=== PATIENT | male | born 1960 | race African-American/Black ===

== ENCOUNTER 2024-01-31 18:51 | Emergency (ER) | payer SELFPAY ==
--- NOTE | 2024-01-31 | ECG_ITS ---
Measurements Intervals [place] Rate: 85 P: 67 MO: 158 QRS: -25 QRSD: 113 T: 228 QT: 371 QTc: 442 Interpretive Statements SINUS RHYTHM INTRAVENTRICULAR CONDUCTION DELAY BORDERLINE R WAVE PROGRESSION, ANTERIOR LEADS LEFT VENTRICULAR HYPERTROPHY AND ST-T CHANGE ST-T WAVE ABNORMALITY IN INF/HIGH LAT LEADS- CONSIDER ISCHEMIA ABNORMAL ECG NO PREVIOUS ECG AVAILABLE FOR COMPARISON Electronically Signed On 02-01-2024 6:23:58 CDT by Jay Valiente D.O.
--- NOTE | ~2024-01-31 | CT_ITS ---
EXAMINATION: CT abdomen pelvis wo con DATE: 01/31/2024 20:23 INDICATION: Abdominal pain TECHNIQUE: Computed tomography (CT) of the abdomen and pelvis was performed without intravenous contr ast. The dose-length product (DLP) was 1482.38 mGy-cm. Automated exposure control and iterative recon struction technique were employed. COMPARISON: None FINDINGS: The lung bases are clear. The heart size is normal. There is mild nodularity of the liver s urface. The spleen, gallbladder, and adrenal glands are normal. Punctate calcifications of the pancre as likely reflect chronic pancreatitis. The kidneys are unremarkable. No pathologically enlarged abdo sangeeta or pelvic lymph nodes are identified. No free intraperitoneal gas or evidence of bowel obstruct ion. The appendix is normal. There is an umbilical hernia containing fat. There is severe lower lumba r spondylosis. IMPRESSION: 1. No CT correlate for the patient's symptoms. 2. Cirrhosis of the liver. Reviewed, dictated and finalized at location F.
[2024-01-31 18:45] VITALS: BP 128/79; PULSE 88; RESP 14; TEMP 36.3; O2SAT 100
[2024-01-31 19:13] VITALS: BP 117/77; PULSE 83; RESP 12; O2SAT 100
[2024-01-31 19:15] LABS: Basophils Absolute Auto 0.1 K/mm3 (0.0-0.1); Basophils Percent Auto 0.6 % (0.2-1.2); Eosinophils Absolute Auto 0.1 K/mm3 (0-0.3); Eosinophils Percent Auto 0.6 % (0-4.4); Hematocrit 42.6 % (42.0-52.0); Hemoglobin 13.6 g/dL (14.0-18.0); Immature Granulocyte Absolute 0.05 K/mm3 (0.00-0.031); Immature Granulocyte Percent A 0.6 % (0-0.5); Lymphocytes Absolute Auto 2.69 K/mm3 (0.9-3.2); Lymphocytes Percent Auto 30.2 % (18.3-44.2); Mean Corpuscular HGB Conc 31.9 g/dl (32-36); Mean Corpuscular Hemoglobin 25.8 pg (26-34); Mean Corpuscular Volume 80.7 fl (80-100); Mean Platelet Volume 9.9 fl (7.4-10.4); Monocytes Absolute Auto 0.7 K/mm3 (0.1-0.6); Monocytes Percent Auto 7.5 % (2.6-8.5); Neutrophils Absolute Auto 5.4 K/mm3 (1.3-6.7); Neutrophils Percent Auto 60.5 % (45.5-73.1); Platelet Count Result 277 k/mm3 (150-375); Red Blood Count 5.28 M/mm3 (4.6-6.20); Red Cell Distribution Width 14.5 % (11.5-14.5); White Blood Count 8.9 K/mm3 (4.5-10.0)
[2024-01-31 19:45] LABS: Alanine Aminotransferase 24 U/L (6-50); Albumin Level 4.7 g/dL (3.5-5.1); Alkaline Phosphatase 93 U/L (38-126); Anion Gap 17 mmol/L (4-12); Aspartate Amino Transferase 24 U/L (17-59); Bilirubin,Total 0.5 mg/dL (0.2-1.3); Blood Urea Nitrogen 30 mg/dL (9-20); Calcium 9.9 mg/dL (8.4-10.2); Carbon Dioxide 17 mmol/L (22-30); Chloride 105 mmol/L (98-107); Estimated CRCL calculation 33 ml/min; Estimated Glomerular Filt Rate 21; Glucose 151 mg/dL (65-110); Lipase 75 U/L (23-300); Potassium 3.5 mmol/L (3.4-5.0); Sodium 139 mmol/L (137-145)
[2024-01-31] MEDS: SODIUM CHLORIDE 0.9% IV 1,000 ML 999 ML IV CONT ×2 (20:07→21:09)
[2024-01-31 20:27] VITALS: BP 134/63; PULSE 78; RESP 16; O2SAT 100
--- NOTE | 2024-01-31 20:57 | ED.ABDPAIN ---
HPI - Abdominal Pain General Chief Complaint: Abdominal Pain Stated Complaint: SUDDEN ONSET SEVERE ABDOMINAL PAIN Time Seen by Provider: 01/31/24 19:03 History of Present Illness HPI narrative: Patient is a 64-year-old male who presents to the emergency department this evening complaining of mid epigastric/periumbilical abdominal pain. Patient admits that yesterday he had some nausea and vomiting throughout the day which has now subsided, however, today shortly prior to arrival to the emergency department he had sharp abdominal pain. Patient admits that the abdominal pain has improved since its onset yesterday and describing as a crampy sensation. Patient also states that he has not had anything to eat today and is currently hungry. He denies any history of previous surgeries including abdominal surgeries and admits that his only medical problem is hypertension which he takes medications for. Patient admits to upper back pain along his trapezius muscles and biceps which he states has also improved. Patient is currently denying any chest pain or shortness of breath, denies any current nausea or vomiting, denies any urinary symptoms including dysuria or hematuria, denies any constipation, diarrhea, melena, hematochezia, fevers or chills. There are no other modifying, alleviating, or precipitating factors at this time. Related Data Allergies Allergy/AdvReac Type Severity Reaction Status Date / Time No Known Allergies Allergy Verified 01/31/24 18:56 Review of Systems Review of Systems: All systems are reviewed and are negative unless stated otherwise in the HPI. PMFSH Comments Past medical history consistent of hypertension, denies any surgical history, denies any pertinent family history, rarely smokes cigarettes, occasional marijuana use. Exam Narrative: General: Alert, awake, afebrile, in no acute distress. HEENT: PERRL, no rhinorrhea, no post nasal drip, oropharynx clear. Neck: Trachea midline, no JVD, no lymphadenopathy. Cardiovascular: Regular rate and rhythm, no murmurs, rubs or gallops, no peripheral edema. Respiratory: Clear to auscultation bilaterally, no tachypnea, no wheezing, no rhonchi, no rubs, no respiratory distress. Abdomen: Soft, nontender, nondistended, no rebound, no guarding, no peritoneal signs. Musculoskeletal: No joint swelling or deformity, normal muscle tone, tenderness to palpation over the bilateral trapezius muscle. Back: No midline tenderness to palpation over the cervical, thoracic and lumbar spine. Skin: No rashes or petechia, no signs of infection. Psychiatric: Alert and oriented, normal behavior and judgment for situation. Neurological: Alert and oriented to person, place, and time. Follows all commands. No focal deficits, speech is clear and fluent. Course Vital Signs Vital signs: Vital Signs Temperature 97.4 F L 01/31/24 18:45 Pulse Rate 88 01/31/24 18:45 Respiratory Rate 14 01/31/24 18:45 Blood Pressure 128/79 01/31/24 18:45 Pulse Oximetry 100 01/31/24 18:45 Oxygen Delivery Room Air 01/31/24 18:45 Temperature 97.4 F L 01/31/24 18:45 Pulse Rate 80 01/31/24 23:35 Respiratory Rate 18 01/31/24 23:35 Blood Pressure 172/92 H 01/31/24 23:35 Pulse Oximetry 100 01/31/24 23:35 Oxygen Delivery Room Air 01/31/24 18:45 MDM - Abdominal Pain MDM Narrative Medical decision making narrative: The patient was evaluated by myself in the emergency department. History is obtained from patient who is an independent historian and physical exam was performed. External medical records were reviewed at this time. IV was established and pertinent tests were ordered. Patient was administered 1 L IV fluid bolus with normal saline. EKG was obtained which revealed sinus rhythm rate of 85 beats per minute. No ST changes, T wave inversions or evidence of acute ischemia. EKG was independently interpreted by me and is currently pending official cardiology read. Trice
[2024-01-31 22:23] LABS: Reflex Lactic Acid Yes or No Add Lactic
[2024-01-31 23:00] LABS: Lactic Acid 2.2 mmol/L (0.7-2.0)
[2024-01-31 23:01] LABS: Alanine Aminotransferase 21 U/L (6-50); Albumin Level 4.1 g/dL (3.5-5.1); Alkaline Phosphatase 77 U/L (38-126); Anion Gap 7 mmol/L (4-12); Aspartate Amino Transferase 21 U/L (17-59); Bilirubin,Total 0.4 mg/dL (0.2-1.3); Blood Urea Nitrogen 32 mg/dL (9-20); Calcium 8.8 mg/dL (8.4-10.2); Carbon Dioxide 25 mmol/L (22-30); Chloride 108 mmol/L (98-107); Creatine Kinase 305 U/L (55-170); Estimated CRCL calculation 37 ml/min; Estimated Glomerular Filt Rate 29; Glucose 124 mg/dL (65-110); Potassium 3.7 mmol/L (3.4-5.0); Sodium 140 mmol/L (137-145)
[2024-01-31 23:02] LABS: Lactic Acid Reflex 2.3 mmol/L (0.7-2.0)
[2024-01-31 23:23] LABS: Bacteria Urine None Seen /hpf; Need Manual Microscopic Reviewed; RBC Urine 0-2 /hpf (0-2); Squamous Epithelial Cell Urine Occasional /hpf (Few); WBC Urine 0-5 /hpf (0-3)
[2024-01-31 23:26] LABS: Color Urine Yellow (Yellow)
[2024-01-31 23:27] LABS: Appearance Urine Clear (Clear); Bilirubin Urine Negative (Negative); Blood Urine Trace-Lysed (Negative); Glucose Urine UA Negative (Negative); Ketones Urine Negative (Negative); Leukocyte Esterase Ur Negative LEU/UL (Negative); Nitrate Urine Negative (Negative); Protein Urine 1+ mg/dL (Negative); Specific Grav Ur 1.015 (1.001-1.035); Urobilinogen Urine 0.2 mg/dL (<2.0)
[2024-01-31 23:28] LABS: Add Urine Microscopic? YES
[2024-01-31 23:35] VITALS: BP 172/92; PULSE 80; RESP 18; O2SAT 100
== END 2024-01-31 23:35 | disposition home or self-care (01) ==
PROVIDERS: Emergency Medicine; Emergency Provider Emergency Medicine
DX: N17.9 Acute kidney failure, unspecified (principal); R10.9 Unspecified abdominal pain; E86.0 Dehydration; K74.60 Unspecified cirrhosis of liver
CPT/HCPCS: 36415; 74176; 80053; 81001; 82550; 83605; 83690; 85025; 93005; 96360; 96361; 99284; J7030